=== PATIENT | male | born 1995 | race Caucasian/White ===

== ENCOUNTER 2016-10-10 00:13 | Emergency (ER) | payer BC ==
[~2016-10-10] VITALS: Ht 175.3 cm; Wt 83.9 kg
[2016-10-10 00:22] VITALS: BP 149/77
--- NOTE | 2016-10-10 00:37 | NUR ---
TO ER BED 1
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
--- NOTE | 2016-10-10 00:43 | NUR ---
Patient being evaluated by physician at bedside.
[2016-10-10] MEDS ORDERED: LIDOCAINE 1% 500 MG/50 ML VIAL INJ ONE (00:45)
[2016-10-10] MEDS ORDERED: KETOROLAC 60 MG/2 ML VIAL IM ONE (00:45)
[2016-10-10] MEDS ORDERED: NEOMYCIN/POLYMYXIN/BACITRACIN 0.9 GM/1 PKT TP ONE (01:23)
[2016-10-10 02:00] VITALS: BP 129/79
--- NOTE | 2016-10-10 02:00 | NUR ---
Patient discharged with v/s stable. Written and verbal after care instructions given and explained. Patient alert, oriented and verbalized understanding of instructions. Ambulatory with steady gait. All questions addressed prior to discharge. ID band removed. Patient advised to follow up with PMD. Rx of MOTRIM, AND BACTRIM given. Patient educated on indication of medication including possible reaction and side effects. Opportunity to ask questions provided and answered.
== END 2016-10-10 02:00 | disposition home or self-care (01) ==
LOC: MED 00:13
DX: S51.012A Laceration without foreign body of left elbow, initial encounter (principal); R03.0 Elevated blood-pressure reading, without diagnosis of hypertension; Y04.2XXA Assault by strike against or bumped into by another person, initial encounter; Y93.89 Activity, other specified; Y92.89 Other specified places as the place of occurrence of the external cause; Y99.8 Other external cause status
CPT/HCPCS: 12002; 73070; 90471; 90715; 96372; 99284; J1885; J2001; Q0092